=== PATIENT | female | born 1965 | race Caucasian/White ===

== ENCOUNTER 2022-09-02 18:00 | Emergency (ER) | payer OTHER ==
[~2022-09-02] VITALS: Ht 157.5 cm; Wt 56.4 kg
[2022-09-02 18:23] LABS: BASO # 0.1 K/mm3 (0.0-0.2); BASO % 0.8 % (0.0-2.0); EOS # 0.3 K/mm3 (0.0-0.7); EOS % 3.2 % (0.0-4.0); GRAN # 4.2 K/mm3 (1.4-6.5); GRAN % 52.3 % (42.2-75.2); HEMOGLOBIN 12.6 g/dl (12.5-16.0); LYMPH # 2.5 K/mm3 (1.2-3.4); LYMPH % 31.7 % (20.0-51.0); MEAN CELL VOLUME 97 fl (80.0-100.0); MEAN CORPUSCULAR HEMOGLOBIN 33 pg (27-31); MEAN CORPUSCULAR HGB CONC 34 g/dl (33.0-37.0); MEAN PLATELET VOLUME 8.2 fl (7.4-10.4); MONO # 0.9 K/mm3 (0.1-0.6); MONO % 11.5 % (1.7-9.3); PLATELET COUNT 300 K/mm3 (130-400); RED BLOOD COUNT 3.82 M/mm3 (4.10-5.30); REDCELL DISTRIBUTION WIDTH-CV 13.4 % (11.5-14.5)
[2022-09-02 18:50] LABS: ALANINE AMINOTRANSFERASE 16 U/L (0-55); ALBUMIN 3.7 gm/dL (3.5-5.0); ALKALINE PHOSPHATASE 93 U/L (40-150); ANION GAP 12 mmol/L (7-16); AST,SGOT 19 U/L (5-34); BILIRUBIN,TOTAL 0.3 mg/dL (0.2-1.2); BLOOD UREA NITROGEN 11 mg/dL (10-20); CALCIUM 9.3 mg/dL (8.4-10.2); CARBON DIOXIDE 23 mmol/L (22-29); CHLORIDE 105 mmol/L (98-107); CREATININE, serum 0.85 mg/dL (0.57-1.11); GLUCOSE 87 mg/dL (70-99); POTASSIUM 3.7 mmol/L (3.5-4.5); SODIUM 140 mmol/L (136-145); TOTAL PROTEIN 7.9 gm/dL (6.2-8.1)
[2022-09-02 18:59] LABS: TROPONIN-I < 0.010 ng/mL (0.00-0.033)
[2022-09-02 20:01] VITALS: BP 123/81; PULSE 86
[2022-09-02] MEDS ORDERED: ATARAX 25MG25 MG/TAB PO (20:04)
== END 2022-09-02 20:01 | disposition home or self-care (01) ==
LOC: COL.ER 18:00
PROVIDERS: Emergency Medicine
DX: R07.9 Chest pain, unspecified (principal); F41.9 Anxiety disorder, unspecified; I25.2 Old myocardial infarction; Z87.891 Personal history of nicotine dependence; Z95.5 Presence of coronary angioplasty implant and graft; Z28.310 Unvaccinated for COVID-19
CPT/HCPCS: J2060

== ENCOUNTER 2023-06-09 08:05 | Emergency (ER) | payer MEDICARE ==
[~2023-06-09] VITALS: Ht 160 cm; Wt 60.0 kg
[2023-06-09 08:08] VITALS: TEMP 97.6
[2023-06-09 10:22] VITALS: BP 124/76; PULSE 76
== END 2023-06-09 10:23 | disposition home or self-care (01) ==
LOC: COL.ER 08:05
DX: M25.521 Pain in right elbow (principal); M25.511 Pain in right shoulder; M54.2 Cervicalgia; W00.0XXA Fall on same level due to ice and snow, initial encounter

== ENCOUNTER → 2023-06-09 | Outpatient (CLI) | payer SELFPAY ==
[~2023-06-09] MED LIST: ASPIRIN 81M81 MG/TA2 PO; ATARAX 25MG25 MG/TAB PO; OTEZLA PO; TRELEGY ELLIPT1 EAC1 IH
== END ==
LOC: COL.RAD 07:40
DX: J98.4 Other disorders of lung (principal); J43.9 Emphysema, unspecified; R91.1 Solitary pulmonary nodule; R93.89 Abnormal findings on diagnostic imaging of other specified body structures